=== PATIENT | male | born 1960 | race Caucasian/White ===

== ENCOUNTER 2017-11-11 20:20 | Emergency (ER) | payer OTHER ==
--- NOTE | 2017-11-11 20:42 | ER Document Report ---
ED Medical Screen (RME) - General Chief Complaint: Sore Throat Stated Complaint: THROAT ISSUE Time Seen by Provider: 11/11/17 20:40 Mode of Arrival: Ambulatory Information source: Patient Notes: This is a 57-year-old man with a history of hypertension and significant GERD who presents to the emergency room with a foreign body sensation in his throat. The patient states that it is not uncommon for him to regurgitate pieces of food after he eats. He states that 2 hours prior to arrival, he had pizza (1 slice pepperoni, one slice cheese). He states that at the time he ate the food , it felt like it went down. He does state he has been able to drink fluids without any obstruction. He states that he has had a sensation that food wants to, and has come up right to about his throat level and he states that it feels like it stuck right there. He has had no shortness of breath or difficulty breathing. His primary care doctor is Dr. Mccauley. He has not seen a GI doctor for several years. Allergies: No known drug allergies TRAVEL OUTSIDE OF THE [place] IN LAST 30 DAYS: No - Related Data Allergies/Adverse Reactions: No Known Allergies Allergy (Verified 06/26/13 04:33) Past Medical History - Social History Family history: Reviewed & Not Pertinent - Past Medical History Cardiac Medical History: Reports: Hx Hypercholesterolemia, Hx Hypertension Pulmonary Medical History: Denies: Hx Tuberculosis Endocrine Medical History: Reports: Hx Hyperthyroidism GI Medical History: Reports: Hx Gastroesophageal Reflux Disease Musculoskeltal Medical History: Reports Hx Musculoskeletal Deformity - Scoliosis with chronic back pain Past Surgical History: Reports: Hx Bowel Surgery - esophageal wrap - Immunizations Hx Diphtheria, Pertussis, Tetanus Vaccination: - unknown Doctor's Discharge - Discharge Referrals: FABIEN MCCAULEY MD [Primary Care Provider] - Follow up as needed
--- NOTE | 2017-11-11 21:03 | RADIOLOGY REPORT (SQ) ---
EXAM DESCRIPTION: SOFT TISSUE NECK COMPLETED DATE/TIME: 11/11/2017 8:51 pm REASON FOR STUDY: fb sensation COMPARISON: None. NUMBER OF VIEWS: Two views. TECHNIQUE: AP and lateral radiographic image of the soft tissues of the neck. LIMITATIONS: None. FINDINGS: EPIGLOTTIS: Normal. Contour normal. Aryepiglottic folds normal. PREVERTEBRAL SOFT TISSUES: Normal. No soft tissue swelling. SUBGLOTTIC AREA: Normal. No narrowing. RETROPHARYNGEAL SPACE: Normal. No soft tissue masses. BONES: No significant findings. LUNG APICES: Normal. OTHER: No radiopaque foreign body. No other significant finding. IMPRESSION: NEGATIVE STUDY OF THE SOFT TISSUES OF THE NECK. TECHNICAL DOCUMENTATION: JOB ID: [id number] [place]-[id number] 2010 [employer]- All Rights Reserved Reading location - IP/workstation name: [email or web address]
[2017-11-11 21:06] LABS: ABSOLUTE BASOPHILS # (AUTO) 0.1 10^3/uL (0.0-0.2); ABSOLUTE EOSINOPHILS # (AUTO) 0.4 10^3/uL (0.0-0.6); ABSOLUTE LYMPHOCYTES (AUTO) 2.7 10^3/uL (0.5-4.7); ABSOLUTE MONOCYTES (AUTO) 0.6 10^3/uL (0.1-1.4); ABSOLUTE NEUT (AUTO) 3.9 10^3/uL (1.7-8.2); BASOPHILS % (AUTO) 0.8 % (0-2); EOSINOPHILS % (AUTO) 5.5 % (0-6); HEMATOCRIT 42.4 % (37.9-51.0); HEMOGLOBIN 14.3 g/dL (13.5-17.0); LYMPHOCYTES % (AUTO) 35.2 % (13-45); MEAN CORPUSCULAR HEMOGLOBIN 27.4 pg (27.0-33.4); MEAN CORPUSCULAR HGB CONC 33.7 g/dL (32.0-36.0); MEAN CORPUSCULAR VOLUME 81 fl (80-97); MONOCYTES % (AUTO) 8.3 % (3-13); PLATELET COUNT 195 10^3/uL (150-450); RED BLOOD COUNT 5.21 10^6/uL (4.35-5.55); RED CELL DISTRIBUTION WIDTH 14.5 % (11.5-14.0); SEGMENTED NEUTROPHILS % (AUTO) 50.2 % (42-78); TOTAL CELLS COUNTED % (AUTO) 100 %; WHITE BLOOD COUNT 7.7 10^3/uL (4.0-10.5)
[2017-11-11 22:20] LABS: ALANINE AMINOTRANSFERASE 41 U/L (21-72); ALBUMIN 3.9 g/dL (3.5-5.0); ALKALINE PHOSPHATASE 65 U/L (38-126); ANION GAP 7 (5-19); ASPARTATE AMINO TRANSFERASE 37 U/L (17-59); BILIRUBIN,DIRECT 0.3 mg/dL (0.0-0.4); BILIRUBIN,TOTAL 0.4 mg/dL (0.2-1.3); BLOOD UREA NITROGEN 15 mg/dL (7-20); CALCIUM 9.3 mg/dL (8.4-10.2); CARBON DIOXIDE 29 mmol/L (22-30); CHLORIDE 107 mmol/L (98-107); GLUCOSE 92 mg/dL (75-110); POTASSIUM 3.9 mmol/L (3.6-5.0); SODIUM 142.8 mmol/L (137-145); TOTAL PROTEIN 6.5 g/dL (6.3-8.2)
[2017-11-11] MEDS ORDERED: MAG HYDROX/AL HYDROX/SIMETH SUSP 30 ML UDCUP PO ONE (22:27)
[2017-11-11] MEDS ORDERED: LIDOCAINE 2% VISCOUS SOLN 20 ML UDCUP PO ONE (22:27)
[2017-11-11] MEDS ORDERED: METOCLOPRAMIDE HCL ORAL SOLN 10 MG/10 ML UDCUP PO ONE (22:27)
--- NOTE | 2017-11-11 22:32 | ER Document Report ---
ED General - General Chief Complaint: Sore Throat Stated Complaint: SORE THROAT Time Seen by Provider: 11/11/17 20:40 Mode of Arrival: Ambulatory Notes: Patient is a 57-year-old male that comes to the emergency department for chief complaint of a sensation of something stuck in his throat. He states that he had pizza for dinner, pepperoni and cheese, states that afterwards he began to have the sensation. He reports it is common for him to regurgitate food after he eats it. He states that he has GERD 75% of most days and belching throughout every day. He is on a PPI but unable to remember the name. He has not had an endoscopy in a long time. He denies vomiting, abdominal pain, chest pain, difficulty breathing. He states that he stepped fluids, this went down, then he gulped fluids and this also went down. TRAVEL OUTSIDE OF THE [place] IN LAST 30 DAYS: No - Related Data Allergies/Adverse Reactions: No Known Allergies Allergy (Verified 06/26/13 04:33) Past Medical History - General Information source: Patient - Social History Smoking Status: Never Smoker Frequency of alcohol use: None Drug Abuse: None Lives with: Family Family History: Reviewed & Not Pertinent Patient has suicidal ideation: No Patient has homicidal ideation: No - Past Medical History Cardiac Medical History: Reports: Hx Hypercholesterolemia, Hx Hypertension Pulmonary Medical History: Denies: Hx Tuberculosis Endocrine Medical History: Reports: Hx Hyperthyroidism Renal/ Medical History: Denies: Hx Peritoneal Dialysis GI Medical History: Reports: Hx Gastroesophageal Reflux Disease Musculoskeletal Medical History: Reports Hx Musculoskeletal Deformity - Scoliosis with chronic back pain Past Surgical History: Reports: Hx Bowel Surgery - esophageal wrap - Immunizations Hx Diphtheria, Pertussis, Tetanus Vaccination: - unknown Review of Systems - Review of Systems Constitutional: No symptoms reported EENT: See HPI Cardiovascular: No symptoms reported Respiratory: No symptoms reported Gastrointestinal: See HPI Genitourinary: No symptoms reported Male Genitourinary: No symptoms reported Musculoskeletal: No symptoms reported Skin: No symptoms reported Hematologic/Lymphatic: No symptoms reported Neurological/Psychological: No symptoms reported Physical Exam - Vital signs Vitals: Pulse Resp BP Pulse Ox 63 18 176/89 H 98 11/11/17 21:31 11/11/17 21:31 11/11/17 21:31 11/11/17 21:31 - Notes Notes: GENERAL: Alert, interacts well. No acute distress. HEAD: Normocephalic, atraumatic. EYES: Pupils equal, round, and reactive to light. Extraocular movements intact. ENT: Oral mucosa moist, tongue midline. Unremarkable oral pharyngeal exam. NECK: Full range of motion. Supple. Trachea midline. LUNGS: Clear to auscultation bilaterally, no wheezes, rales, or rhonchi. No respiratory distress. HEART: Regular rate and rhythm. No murmur ABDOMEN: Soft, non-tender. Non-distended. Bowel sounds present in all 4 quadrants. EXTREMITIES: Moves all 4 extremities spontaneously. No edema, normal radial and dorsalis pedis pulses bilaterally. No cyanosis. BACK: no cervical, thoracic, lumbar midline tenderness. No saddle anesthesia, normal distal neurovascular exam. NEUROLOGICAL: Alert and oriented x3. Normal speech. [cranial nerves II through XII grossly intact]. PSYCH: Normal affect, normal mood. SKIN: Warm, dry, normal turgor. No rashes or lesions noted. Course - Re-evaluation Re-evalutation: Patient without obstruction, he can tolerate p.o. without any difficulty. He still has the foreign body sensation intermittently. I suspect he is having esophageal spasm but I am uncertain at this time. He denies chest pain, shortness of breath, abdominal pain. Because of patient's severe GERD symptoms reported he was given GI cocktail, I did review x-ray from triage and this was unremarkable, CBC, chemistry unremarkable, vital signs unremarkable, patient is talkative and well-appearing. After GI cocktail patient's symptoms completely resolved. He is still tolerating p.o. without any difficulty. Patient is very satisfied with this, he states he will follow-up with gastroenterology, he is requesting to leave. Discussed follow-up and return precautions. Patient states understanding and agreement. - Vital Signs Vital signs: Temp Pulse Resp BP Pulse Ox 98.3 F 56 L 18 158/85 H 96 11/12/17 00:12 11/12/17 00:12 11/12/17 00:12 11/12/17 00:12 11/12/17 00:12 - Laboratory Result Diagrams: 11/11/17 20:55 11/11/17 21:47 Laboratory results interpreted by me: 11/11/17 20:55 RDW 14.5 H Discharge - Discharge Clinical Impression: Dyspepsia, Throat discomfort Condition: Stable Disposition: HOME, SELF-CARE Additional Instructions: Your workup here and examination are reassuring, this appears to be most likely esophageal spasm, I recommend that you take the Carafate along with your current medication for the next 5 days, follow-up with the gastroenterology referral for additional evaluation and management. Return if you worsen including vomiting, vomiting blood, black stools, severe pain, difficulty swallowing, or any other concerning symptoms. Prescriptions: Sucralfate [Carafate 1 gm Tablet] 1 gm PO QID #20 tablet Referrals: JU MCCLOUD MD [ACTIVE STAFF] - Follow up as needed
[2017-11-12 00:13] VITALS: BP 158/85
== END 2017-11-12 00:14 | disposition home or self-care (01) ==
LOC: ER 20:20
DX: J02.9 Acute pharyngitis, unspecified (principal); R10.13 Epigastric pain
CPT/HCPCS: 99283; 36415; 85025; 80053; 70360; J3490

== ENCOUNTER 2018-03-12 12:11 | Emergency (ER) | payer OTHER ==
[2018-03-12 12:35] VITALS: BP 153/84
--- NOTE | 2018-03-12 14:41 | RADIOLOGY REPORT (SQ) ---
EXAM DESCRIPTION: SOFT TISSUE NECK COMPLETED DATE/TIME: 03/12/2018 2:28 pm REASON FOR STUDY: muffled voice, eval airway COMPARISON: 11/11/2017. NUMBER OF VIEWS: Two views. TECHNIQUE: AP and lateral radiographic image of the soft tissues of the neck. LIMITATIONS: None. FINDINGS: EPIGLOTTIS: Normal. Contour normal. Aryepiglottic folds normal. PREVERTEBRAL SOFT TISSUES: Normal. No soft tissue swelling. SUBGLOTTIC AREA: Normal. No narrowing. RETROPHARYNGEAL SPACE: Normal. No soft tissue masses. BONES: No significant findings. LUNG APICES: Normal. OTHER: No radiopaque foreign body. No other significant finding. IMPRESSION: NEGATIVE STUDY OF THE SOFT TISSUES OF THE NECK. TECHNICAL DOCUMENTATION: JOB ID: [id number] [employer]- All Rights Reserved Reading location - IP/workstation name: [email or web address]
[2018-03-12] MEDS ORDERED: PREDNISONE 20 MG TABLET PO ONE (14:55)
[2018-03-12] MEDS ORDERED: DOXYCYCLINE HYCLATE 100 MG TABLET PO ONE (14:55)
--- NOTE | 2018-03-12 14:56 | ER Document Report ---
HPI - HPI Time Seen by Provider: 03/12/18 13:48 Pain Level: 1 Notes: Patient is an otherwise healthy 58-year-old male who presents the emergency department with chief complaint of productive cough over the last 2-3 weeks. Patient reports mild fevers at home. Patient reports this morning he woke up with a hoarse voice. Denies any sore throat. Patient reports he is able to swallow without difficulty. Patient does have a hot potato voice on exam. - CONSTITUTIONAL Constitutional: DENIES: Fever, Chills - CARDIOVASCULAR Cardiovascular: REPORTS: Chest pain - REPRODUCTIVE Reproductive: DENIES: : Past Medical History - General Information source: Patient - Social History Smoking Status: Never Smoker Chew tobacco use (# tins/day): No Frequency of alcohol use: None Drug Abuse: None Family History: Reviewed & Not Pertinent Patient has suicidal ideation: No Patient has homicidal ideation: No - Past Medical History Cardiac Medical History: Reports: Hx Hypercholesterolemia, Hx Hypertension Pulmonary Medical History: Denies: Hx Tuberculosis Endocrine Medical History: Reports: Hx Hyperthyroidism Renal/ Medical History: Denies: Hx Peritoneal Dialysis GI Medical History: Reports: Hx Gastroesophageal Reflux Disease Musculoskeletal Medical History: Reports Hx Musculoskeletal Deformity - Scoliosis with chronic back pain Past Surgical History: Reports: Hx Bowel Surgery - esophageal wrap - Immunizations Hx Diphtheria, Pertussis, Tetanus Vaccination: - unknown Vertical Provider Document - CONSTITUTIONAL Notes: PHYSICAL EXAMINATION: GENERAL: Well-appearing, well-nourished and in no acute distress. HEAD: Atraumatic, normocephalic. EYES: Pupils equal round extraocular movements intact, conjunctiva are normal. ENT: Nares patent with clear rhinorrhea. NECK: Normal range of motion and without lymphadenopathy. LUNGS: No respiratory distress, lung sounds clear to auscultation with occasional rhonchi. Musculoskeletal: Normal range of motion NEUROLOGICAL: Normal speech, normal gait. PSYCH: Normal mood, normal affect. SKIN: Warm, Dry, normal turgor, no rashes or lesions noted. - INFECTION CONTROL TRAVEL OUTSIDE OF THE [place] IN LAST 30 DAYS: No Course - Re-evaluation Re-evalutation: Soft tissue neck x-ray was obtained and has no acute findings. Patient's phys ical examination is consistent with bronchitis. Considering patient is 58 years old and has had the symptoms for close to 3 weeks. I do feel that it is reasonable to place this patient on antibiotic at this point. - Vital Signs Vital signs: Temp Pulse Resp BP Pulse Ox 98.3 F 58 L 16 153/84 H 97 03/12/18 12:34 03/12/18 12:34 03/12/18 12:34 03/12/18 12:34 03/12/18 12:34 Discharge - Discharge Clinical Impression: Bronchitis Condition: Stable Disposition: HOME, SELF-CARE Additional Instructions: BRONCHITIS WITH BRONCHOSPASM (WHEEZING): You have bronchitis with bronchospasm (wheezing). Sometimes people develop wheezing with a chest cold. This occurs either because of an underlying tendency toward asthma or because the virus itself irritates the bronchial tubes. This irritation causes cough, shortness of breath, and wheezing. Emergency treatment of bronchospasm may include adrenaline shots or bronchodilator aerosol. You may feel lightheaded and have a rapid pulse for an hour or two. Rest and get plenty of fluids. At home, we'll treat you with a bronchodilator inhaler. Corticosteroids may be required for some patients. Until you recover, avoid chemical fumes, dusts, pollens, and exercising in very cold or dry air. If you smoke, stop now! Most cases of bronchitis get better without antibiotics. We prescribe antibiotics when we believe bacteria are damaging your airways, or if there's high risk the bronchitis will worsen into pneumonia. Increase your fluid intake. A cool mist humidifier may make your lungs more comfortable. An expectorant (co ugh medicine that loosens phlegm) can help. Repeated episodes of bronchitis and bronchospasm may result in lung damage -- for example, chronic bronchitis, recurrent pneumonias, or emphysema. If you develop a fever, increased wheezing, chest pain, or severe shortness of breath, you should contact the doctor immediately. INHALED BRONCHODILATORS: You have received a treatment of and/or prescription for an inhaled bronchodilator -- a medication which stimulates the airways in the lung to dilate. This improves the flow of air in asthma, bronchitis, and emphysema. These medicines have some similarity to adrenaline, and can cause similar side effects: shakiness, racing heart, and a sense of nervousness. These side effects decrease with time. Contact your doctor if these side effects are severe. Do not over-use the medicine. Too-frequent use of the inhaler may make it ineffective. Call your doctor if the inhaler is not controlling your symptoms at the prescribed doses. STEROID MEDICATION: You have been given an injection of or oral medicine of the cortisone/steroid class. This medication is used to control inflammation or allergy. Ronald t is usually only given for a short period of time, until the acute process subsides. There are usually no side effects from short-term use of cortisone-like medications. Some persons feel an increased sense of well-being and are not sleepy at bedtime. Long-term use of cortisone medications is best avoided, unless required for a severe condition. If your condition does not remit, or relapses after the course of corticosteroid medication, you should consult your physician. ANTIBIOTIC THERAPY: You have been given an antibiotic prescription. It's important that you take all the medication, unless instructed otherwise by your physician. Failure to complete the entire course can result in relapse of your condition. Common side effects of antibiotics include nausea, intestinal cramping, or diarrhea. Women may develop vaginal yeast infections, and babies can get yeast (thrush) in the mouth following the use of antibiotics. Contact your physician if you develop significant side effects from this medication. Allergy to this antibiotic can result in hives, wheezing, faintness, or itching. If symptoms of allergy occur, stop the medication and call your doctor. DOXYCYCLINE: Doxycycline (Vibramycin, Doryx) is an antibiotic of the tetracycline family. This type of drug is useful for infections of the respiratory tract and genital tract, and is sometimes used for intestinal infections. Unlike most tetracyclines, doxycycline can be taken with food. It is longer acting, and (usually) less prone to side effects than regular tetracycline. Tetracycline antibiotics can stain immature teeth and SHOULD NOT BE TAKEN BY CHILDREN, NURSING MOTHERS, OR WOMEN. Tetracyclines can make you more prone to sunburn. Abdominal cramping, nausea, and diarrhea are occasional side effects. Women may experience vaginal yeast infections. Call the doctor at once if you develop hives, itching, shortness of breath, or lightheadedness. USE OF ACETAMINOPHEN (Tylenol): Acetaminophen may be taken for pain relief or fever control. It's much safer than aspirin, offering a wider range of "safe" dosages. It is safe during . Some brand names are Tylenol, Panadol, Datril, Anacin 3, Tempra, and Liquiprin. Acetaminophen can be repeated every four hours. The following are maximum recommended dosages: >89 pounds or adults 650 mg to 900 mg Acetaminophen can be repeated every four hours. Maximum dose not to exceed 4000 mg a day. SMOKING: If you smoke, you should stop smoking. The tar and chemicals in cigarette smoke are harmful. Smoking has been shown to cause: emphysema chronic bronchitis lung cancer mouth and throat cancer stomach and pancreas cancer premature aging defects In addition, smoking increases ear and lung infections in children of smokers. FOLLOW-UP CARE: If you have been referred to a physician for follow-up care, call the physicians office for an appointment as you were instructed or within the next two days. If you experience worsening or a significant change in your symptoms, notify the physician immediately or return to the Emergency Department at any time for re-evaluation. Prescriptions: Doxycycline Hyclate 100 mg PO BID #14 capsule Fluticasone Propionate [Flonase Nasal [place] 50 Mcg/[place] 16 gm] 2 sprays NASL Q12 #1 inhaler Prednisone [Deltasone 20 mg Tablet] 3 tab PO DAILY 4 Days #12 tablet Referrals: FABIEN MCCAULEY MD [Primary Care Provider] - Follow up as needed
[2018-03-12] MEDS ORDERED: ALBUTEROL SULFATE HFA (90 MCG/PUFF) 200 PUFF/8.5 GM MDI IH ONE (15:03)
== END 2018-03-12 15:16 | disposition home or self-care (01) ==
LOC: ER 12:11
DX: J40 Bronchitis, not specified as acute or chronic (principal); R05 Cough; R50.9 Fever, unspecified; R49.0 Dysphonia; R07.9 Chest pain, unspecified; I10 Essential (primary) hypertension
CPT/HCPCS: 99283; 70360; J7512; J3490

== ENCOUNTER 2018-11-17 13:15 | Observation (INO) | payer OTHER ==
[2018-11-17 14:19] LABS: ABSOLUTE BASOPHILS # (AUTO) 0.1 10^3/uL (0.0-0.2); ABSOLUTE EOSINOPHILS # (AUTO) 0.2 10^3/uL (0.0-0.6); ABSOLUTE LYMPHOCYTES (AUTO) 1.9 10^3/uL (0.5-4.7); ABSOLUTE MONOCYTES (AUTO) 0.5 10^3/uL (0.1-1.4); ABSOLUTE NEUT (AUTO) 3.1 10^3/uL (1.7-8.2); BASOPHILS % (AUTO) 1.1 % (0-2); EOSINOPHILS % (AUTO) 3.5 % (0-6); LYMPHOCYTES % (AUTO) 33.7 % (13-45); MEAN CORPUSCULAR HGB CONC 33.3 g/dL (32.0-36.0); MEAN CORPUSCULAR VOLUME 81 fl (80-97); MONOCYTES % (AUTO) 8.4 % (3-13); PLATELET COUNT 166 10^3/uL (150-450); RED BLOOD COUNT 5.18 10^6/uL (4.35-5.55); RED CELL DISTRIBUTION WIDTH 14.6 % (11.5-14.0); SEGMENTED NEUTROPHILS % (AUTO) 53.3 % (42-78); TOTAL CELLS COUNTED % (AUTO) 100 %; WHITE BLOOD COUNT 5.8 10^3/uL (4.0-10.5)
[2018-11-17 14:45] LABS: ALBUMIN 4.7 g/dL (3.5-5.0); ALKALINE PHOSPHATASE 61 U/L (38-126); ANION GAP 9 (5-19); ASPARTATE AMINO TRANSFERASE 40 U/L (17-59); BILIRUBIN,DIRECT 0.1 mg/dL (0.0-0.4); BLOOD UREA NITROGEN 17 mg/dL (7-20); CALCIUM 9.6 mg/dL (8.4-10.2); CARBON DIOXIDE 26 mmol/L (22-30); CHLORIDE 104 mmol/L (98-107); CREATINE KINASE 96 U/L (55-170); GLUCOSE 91 mg/dL (75-110); POTASSIUM 4.3 mmol/L (3.6-5.0); TOTAL PROTEIN 7.4 g/dL (6.3-8.2)
[2018-11-17 14:57] LABS: CREATINE KINASE MB 0.62 ng/mL (<4.55); TROPONIN I < 0.012 ng/mL
[2018-11-17 16:25] LABS: INTERNATIONAL RATION (INR) 0.98
--- NOTE | 2018-11-17 16:34 | RADIOLOGY REPORT (SQ) ---
EXAM DESCRIPTION: CHEST SINGLE VIEW COMPLETED DATE/TIME: 11/17/2018 4:22 pm REASON FOR STUDY: chest pain COMPARISON: KUB same date Two-view chest 06/28/2013 EXAM PARAMETERS: NUMBER OF VIEWS: One view. TECHNIQUE: Single frontal radiographic view of the chest acquired. RADIATION DOSE: NA LIMITATIONS: None. FINDINGS: LUNGS AND PLEURA: No opacities, masses or pneumothorax. No pleural effusion. MEDIASTINUM AND HILAR STRUCTURES: No masses. Contour normal. HEART AND VASCULAR STRUCTURES: Mild cardiomegaly BONES: No acute findings. HARDWARE: None in the chest. OTHER: No other significant finding. IMPRESSION: Mild cardiomegaly. No acute infiltrates TECHNICAL DOCUMENTATION: JOB ID: [id number] [employer]- All Rights Reserved Reading location - IP/workstation name: [email or web address]
--- NOTE | 2018-11-17 16:35 | RADIOLOGY REPORT (SQ) ---
EXAM DESCRIPTION: KUB/ABDOMEN (SINGLE VIEW) COMPLETED DATE/TIME: 11/17/2018 4:22 pm REASON FOR STUDY: abdominal pain COMPARISON: CT abdomen and pelvis 06/26/2013 NUMBER OF VIEWS: One view. TECHNIQUE: Supine radiographic image of the abdomen acquired. LIMITATIONS: None. FINDINGS: BOWEL GAS PATTERN: Abnormal but nonspecific bowel gas pattern, with air in borderline dis tended small bowel loops, gas and stool in the colon. Stomach decompressed. CALCIFICATIONS: No suspicious calcifications. SOFT TISSUES: No gross mass or suggestion of organomegaly. HARDWARE: None in the abdomen. BONES: No acute fracture. No worrisome bone lesions. OTHER: No other significant finding. IMPRESSION: Nonspecific bowel gas pattern with air-filled borderline dilated small bowel loops. TECHNICAL DOCUMENTATION: JOB ID: [id number] [employer]- All Rights Reserved Reading location - IP/workstation name: [email or web address]
[2018-11-17] MEDS ORDERED: BISACODYL 10 MG SUPP.RECT PR ONE (17:45)
[2018-11-17] MEDS ORDERED: MAGNESIUM CITRATE 296 ML BOTTLE PO ONE (17:45)
[2018-11-17] MEDS ORDERED: (PENDING PHARMACY ID) (Venlafaxine Hcl [Effexor] 37.5 MG) PO SCH (18:00)
--- NOTE | 2018-11-17 18:10 | PDOC H&P ---
History of Present Illness Admission Date/PCP: 11/17/18 13:15 FABIEN GRARICK Patient complains of: Chest pain History of Present Illness: STACY TRUONG is a 58 year old male patient known to my practice with history of hyperthyroidism on medication management who presented to the office earlier today with complain of chest tightness and pain. Patient reported that his symptoms have been ongoing for about 12-15 hours, localized pain to substernal region and radiating in both direction. His pain is worsen with movement and coughing. Patient reported associated abdominal pain with tarry stool, dyspepsia, reflux and constipation. He reported coughing with episodes of need to sit up in bed due to difficulty with breathing. Patient reported worsening tremor and back pain. His evaluation in the office was significant for anxiousness, demonstrable tremor in hands and fingers, and 12 lead ECG that revealed sinus bradycardia with anteroseptal ST-T wave changes that may be due to myocardial infarction. In view of his protean symptoms presentation, morbidities and ECG findings he was advised hospitalization on observation status for further evaluation and management. Past Medical History Cardiac Medical History: Reports: Hyperlipidema, Hypertension Pulmonary Medical History: Denies: Tuberculosis Endocrine Medical History: Reports: Hyperthyroidism GI Medical History: Reports: Gastroesophageal Reflux Disease Hematology: Reports: Anemia Social History Smoking Status: Never Smoker Frequency of Alcohol Use: None Hx Recreational Drug Use: No Drugs: None Hx Prescription Drug Abuse: No - Advance Directive Resuscitation Status: Full Code Family History Family History: Reviewed & Not Pertinent Parental Family History Reviewed: Yes Children Family History Reviewed: Yes Sibling(s) Family History Reviewed.: Yes Medication/Allergy Home Medications: Metoprolol Tartrate [Lopressor 25 mg Tablet] 25 mg PO Q12 11/17/18 Pantoprazole Sodium [Protonix [address] Tablet] 40 mg PO Q6AM 11/17/18 Pregabalin [Lyrica 75 mg Capsule] 75 mg PO Q8 11/17/18 Propylthiouracil [Propylthiouracil 50 Mg Tablet] 100 mg PO BID 11/17/18 Simvastatin [Zocor 20 mg Tablet] 20 mg PO DAILY 11/17/18 Venlafaxine HCl [Effexor] 37.5 mg PO BID 11/17/18 Allergies/Adverse Reactions: No Known Allergies Allergy (Verified 06/26/13 04:33) Review of Systems Constitutional: ABSENT: chills, fever(s), headache(s), weight gain, weight loss Eyes: ABSENT: visual disturbances Ears: ABSENT: hearing changes Nose, Mouth, and Throat: ABSENT: as per HPI, headache(s), mouth pain, sore throat, vertigo, other Cardiovascular: PRESENT: chest pain, dyspnea on exertion. ABSENT: as per HPI, edema, orthropnea, palpitations, other Respiratory: PRESENT: cough, dyspnea Gastrointestinal: PRESENT: abdominal pain - with dyspepsia and reflux, constipation, hematochezia - more of reported tarry stool Genitourinary: ABSENT: dysuria, hematuria Musculoskeletal: PRESENT: back pain Integumentary: ABSENT: rash, wounds Neurological: PRESENT: tremor(s) Psychiatric: PRESENT: other - sleep disturbance Allergic/Immunologic: PRESENT: seasonal rhinorrhea - cold and congestion was reported by spouse at bedside., other - frequent sneezing Physical Exam Vital Signs: Temp Pulse Resp BP Pulse Ox 97.4 F 50 L 16 156/77 H 98 11/17/18 16:41 11/17/18 16:41 11/17/18 16:41 11/17/18 16:41 11/17/18 16:41 Intake & Output 11/16/18 11/17/18 11/18/18 06:59 06:59 06:59 Weight 111.5 kg General appearance: PRESENT: mild distress - from chest and abdominal discomfort in the office, obese Head exam: PRESENT: atraumatic, normocephalic Eye exam: PRESENT: conjunctiva pink, EOMI, PERRLA. ABSENT: scleral icterus Ear exam: PRESENT: normal external ear exam Mouth exam: PRESENT: moist Neck exam: PRESENT: full ROM. ABSENT: carotid bruit, JVD, lymphadenopathy, thyromegaly Respiratory exam: PRESENT: clear to auscultation gamaliel Cardiovascular exam: PRESENT: bradycardia, +S1, +S2. ABSENT: diastolic murmur, rubs, systolic murmur Vascular exam: PRESENT: normal capillary refill. ABSENT: pallor GI/Abdominal exam: PRESENT: distended, firm, normal bowel sounds. ABSENT: guarding, organolmegaly, rebound, tenderness Rectal exam: PRESENT: deferred Extremities exam: ABSENT: pedal edema Musculoskeletal exam: PRESENT: normal inspection Neurological exam: PRESENT: alert, awake, oriented to person, oriented to place, oriented to time, oriented to situation, CN II-XII grossly intact. ABSENT: motor sensory deficit Psychiatric exam: PRESENT: anxious Skin exam: PRESENT: dry, warm Results Laboratory Results: 11/17/18 14:00 11/17/18 14:00 11/17/18 11/17/18 14:00 14:00 WBC 5.8 RBC 5.18 Hgb 14.0 Hct 42.0 MCV 81 MCH 27.0 MCHC 33.3 RDW 14.6 H Plt Count 166 Seg Neutrophils % 53.3 Sodium 139.2 Potassium 4.3 Chloride 104 Carbon Dioxide 26 Anion Gap 9 BUN 17 Creatinine 0.74 Est GFR ( Amer) > 60 Glucose 91 Calcium 9.6 Total Bilirubin 1.0 AST 40 Alkaline Phosphatase 61 Total Protein 7.4 Albumin 4.7 11/17/18 11/17/18 14:00 14:00 Creatine Kinase 96 CK-MB (CK-2) 0.62 Troponin I < 0.012 Impressions: Chest X-Ray 11/17/18 00:00 IMPRESSION: Mild cardiomegaly. No acute infiltrates KUB X-Ray 11/17/18 14:30 IMPRESSION: Nonspecific bowel gas pattern with air-filled borderline dilated small bowel loops. Assessment & Plan - Diagnosis (1) Chest pain with high risk of acute coronary syndrome Is this a current diagnosis for this admission?: Yes Plan: See admitting attending physician orders for details about care plan. (2) Abdominal pain Qualifiers: Abdominal location: unspecified location Qualified Code(s): R10.9 - Unspecified abdominal pain Is this a current diagnosis for this admission?: Yes Plan: See admitting attending physician orders for details about care plan. (3) Constipation Qualifiers: Constipation type: unspecified constipation type Qualified Code(s): K59.00 - Constipation, unspecified Is this a current diagnosis for this admission?: Yes Plan: See admitting attending physician orders for details about care plan. (4) Hyperthyroidism Is this a current diagnosis for this admission?: Yes Plan: See admitting attending physician orders for details about care plan. (5) Essential hypertension Is this a current diagnosis for this admission?: Yes Plan: See admitting attending physician orders for details about care plan. (6) Hyperlipidemia Qualifiers: Hyperlipidemia type: unspecified Qualified Code(s): E78.5 - Hyperlipidemia, unspecified Is this a current diagnosis for this admission?: Yes Plan: See admitting attending physician orders for details about care plan. (7) GERD (gastroesophageal reflux disease) Qualifiers: Esophagitis presence: esophagitis presence not specified Qualified Code(s): K21.9 - Gastro-esophageal reflux disease without esophagitis Is this a current diagnosis for this admission?: Yes Plan: See admitting attending physician orders for details about care plan. (8) BPH loc w urin obs/LUTS Is this a current diagnosis for this admission?: Yes Plan: See admitting attending physician orders for details about care plan. (9) Lumbar degenerative disc disease Is this a current diagnosis for this admission?: Yes Plan: See admitting attending physician orders for details about care plan. (10) Chronic pain syndrome Is this a current diagnosis for this admission?: Yes Plan: See admitting attending physician orders for details about care plan. (11) CAM[place] (obstructive sleep apnea) Is this a current diagnosis for this admission?: Yes Plan: See admitting attending physician orders for details about care plan. - Time Time Spent: 50 to 70 Minutes Medications reviewed and adjusted accordingly: Yes Anticipated discharge: Home Within: Other - Inpatient Certification Based on my medical assessment, after consideration of the patient's comorbidities, presenting symptoms, or acuity I expect that the services needed warrant INPATIENT care.: No I certify that my determination is in accordance with my understanding of Medicare's requirements for reasonable and necessary INPATIENT services [42 CFR 412.3e].: No Medical Necessity: Significant Comorbidiites Make Outpatient Treatment Too Risky, Need Close Monitoring Due to Risk of Patient Decompensation, Need For Continuous Telemetry Monitoring, Risk of Complication if Not Cared For in H ospital, Risk of Diagnosis Which Will Require Inpatient Eval/Care/Monitoring Post Hospital Care: D/C C[employer] Documentation - Plan Summary Plan Summary: See admitting attending physician orders for details about care plan.
[2018-11-17 19:17] LABS: FREE T3 3.52 pg/mL (2.77-5.27); FREE T4 (FREE THYROXINE) 0.89 ng/dL (0.78-2.19)
[2018-11-17 19:31] LABS: THYROID STIMULATING HORMONE 0.9 uIU/mL (0.47-4.68)
[2018-11-17] MEDS: PROPYLTHIOURACIL 50 MG TABLET PO SCH (21:41)
[2018-11-17] MEDS: VENLAFAXINE HCL 75 MG TABLET PO SCH (21:41)
[2018-11-17] MEDS: PREGABALIN 75 MG CAPSULE PO SCH (21:41)
[2018-11-17] MEDS: SIMVASTATIN 10 MG TABLET PO SCH (21:41)
[2018-11-18] MEDS: PREGABALIN 75 MG CAPSULE PO SCH ×3 (05:07→21:28)
--- NOTE | 2018-11-18 08:59 | EKG REPORT ---
SEVERITY:- BORDERLINE ECG - SINUS BRADYCARDIA BORDERLINE LEFT AXIS DEVIATION BORDERLINE T ABNORMALITIES, ANT-LAT LEADS : Confirmed by: Luz Mcguire 18-Nov-2018 08:58:33
[2018-11-18] MEDS: PANTOPRAZOLE SODIUM 40 MG TABLET.DR PO SCH (10:11)
[2018-11-18] MEDS: ASPIRIN 81 MG TABLET, ENT COATED PO SCH (10:12)
[2018-11-18] MEDS: PROPYLTHIOURACIL 50 MG TABLET PO SCH ×2 (10:12→21:28)
[2018-11-18] MEDS: VENLAFAXINE HCL 75 MG TABLET PO SCH ×2 (10:12→21:28)
[2018-11-18] MEDS: ENOXAPARIN SODIUM INJ 40 MG/0.4 ML DISP.SYRIN SUBCUT SCH (10:13)
[2018-11-18 14:48] LABS: CREATINE KINASE MB 0.33 ng/mL (<4.55)
[2018-11-18 14:51] LABS: TROPONIN I < 0.012 ng/mL
--- NOTE | 2018-11-18 16:24 | PDOC PROGRESS REPORT ---
Subjective Progress Note for:: 11/18/18 Subjective:: Patient was admitted yesterday, it seems that the primary symptom was severe constipation associated with abdominal pain that seems to involve his chest. He does not have chest pain that suggest ischemia, he was prescribed anti- constipation medication yesterday with good results, he has a history of hypothyroidism on PTU Reason For Visit: CHEST PAIN, ABDOMINAL PAIN, CONSTIPATION Physical Exam Vital Signs: Temp Pulse Resp BP Pulse Ox 97.6 F 61 18 152/76 H 97 11/18/18 15:39 11/18/18 15:39 11/18/18 15:39 11/18/18 15:39 11/18/18 15:39 Intake & Output 11/17/18 11/18/18 11/19/18 06:59 06:59 06:59 Weight 111.2 kg General appearance: PRESENT: no acute distress Eye exam: PRESENT: PERRLA Respiratory exam: PRESENT: clear to auscultation gamaliel Cardiovascular exam: PRESENT: +S1, +S2 GI/Abdominal exam: PRESENT: soft Neurological exam: PRESENT: alert Results Laboratory Results: 11/17/18 14:00 11/17/18 14:00 11/17/18 14:00 TSH 0.90 Free T4 0.89 Free T3 pg/mL 3.52 11/17/18 11/17/18 11/18/18 14:00 14:00 14:01 Creatine Kinase 96 72 CK-MB (CK-2) 0.62 Troponin I < 0.012 11/18/18 14:01 Creatine Kinase CK-MB (CK-2) 0.33 Troponin I < 0.012 Impressions: Chest X-Ray 11/17/18 00:00 IMPRESSION: Mild cardiomegaly. No acute infiltrates KUB X-Ray 11/17/18 14:30 IMPRESSION: Nonspecific bowel gas pattern with air-filled borderline dilated small bowel loops. Assessment & Plan - Diagnosis (1) Constipation Qualifiers: Constipation type: unspecified constipation type Qualified Code(s): K59.00 - Constipation, unspecified Is this a current diagnosis for this admission?: Yes Plan: Continue treatment (2) Abdominal pain Qualifiers: Abdominal location: unspecified location Qualified Code(s): R10.9 - Unspecified abdominal pain Is this a current diagnosis for this admission?: Yes
[2018-11-18] MEDS ORDERED: ACETAMINOPHEN 325 MG TABLET PO PRN (19:27)
[2018-11-18 20:22] LABS: CREATINE KINASE MB 0.46 ng/mL (<4.55)
[2018-11-18 20:31] LABS: TROPONIN I < 0.012 ng/mL
[2018-11-18] MEDS: SIMVASTATIN 10 MG TABLET PO SCH (21:28)
[2018-11-19 02:12] LABS: CREATINE KINASE MB 0.32 ng/mL (<4.55)
[2018-11-19 02:13] LABS: TROPONIN I < 0.012 ng/mL
[2018-11-19] MEDS: PREGABALIN 75 MG CAPSULE PO SCH (06:09)
[2018-11-19] MEDS: ENOXAPARIN SODIUM INJ 40 MG/0.4 ML DISP.SYRIN SUBCUT SCH (09:20)
[2018-11-19] MEDS: PANTOPRAZOLE SODIUM 40 MG TABLET.DR PO SCH (09:46)
[2018-11-19] MEDS: ASPIRIN 81 MG TABLET, ENT COATED PO SCH (09:46)
[2018-11-19] MEDS: PROPYLTHIOURACIL 50 MG TABLET PO SCH (09:46)
[2018-11-19] MEDS: VENLAFAXINE HCL 75 MG TABLET PO SCH (09:46)
[2018-11-19 12:10] VITALS: BP 142/66
--- NOTE | 2018-11-19 13:21 | PDOC DISCHARGE SUMMARY ---
Impression - Admit/DC Date/PCP Admission Date/Primary Care Provider: 11/17/18 13:15 FABIEN MCCAULEY Discharge Date: 11/19/18 - Discharge Diagnosis (1) Abdominal pain Is this a current diagnosis for this admission?: Yes (2) Chest pain Is this a current diagnosis for this admission?: Yes (3) Constipation Is this a current diagnosis for this admission?: Yes (4) Irritable bowel syndrome with constipation Is this a current diagnosis for this admission?: Yes - Additional Information Resuscitation Status: Full Code Discharge Diet: Cardiac Discharge Activity: Activity As Tolerated Referrals: FABIEN MCCAULEY MD [Primary Care Provider] - Prescriptions: Linaclotide [Linzess 145 Mcg Capsule] 145 mcg PO DAILY #30 capsule Home Medications: Metoprolol Tartrate [Lopressor 25 mg Tablet] 25 mg PO Q12 11/17/18 Pantoprazole Sodium [Protonix [address] Tablet] 40 mg PO Q6AM 11/17/18 Pregabalin [Lyrica 75 mg Capsule] 75 mg PO Q8 11/17/18 Propylthiouracil [Propylthiouracil 50 mg Tablet] 100 mg PO BID 11/17/18 Simvastatin [Zocor 20 mg Tablet] 20 mg PO DAILY 11/17/18 Venlafaxine HCl [Effexor] 37.5 mg PO BID 11/17/18 Linaclotide [Linzess 145 Mcg Capsule] 145 mcg PO DAILY #30 capsule 11/19/18 History of Present Illiness History of Present Illness: STACY TRUONG is a 58 year old male,Patient was admitted for evaluation of, chest pain, abdominal pain, constipation Hospital Course Hospital Course: Patient with a history of hyperthyroidism, on treatment with PTU, he was admitted for evaluation of abdominal pain with chest pain and constipation. He stated that he is chronically constipated, he does not have a BM on a regular basis, he seems that he was so constipated he had a chest pain, because of the chest pain Dr. Mccauley patient primary care physician admitted him to the hospital for observation. He had 3 sets of cardiac enzymes drawn, negative for myocardial infarction. The constipation was treated successfully with combination of Dulcolax, MiraLAX with very good results. Patient felt much better, the abdominal pain resolved, chest pain resolved on direct questioning, it seems that this patient may have irritable bowel syndrome with constipation predominant. I saw him today on rounds he is stable enough for discharge home, he was discharged home on Linzess, he will follow with Dr. Mccauley outpatient for further evaluation. Physical Exam Vital Signs: Temp Pulse Resp BP Pulse Ox 97.8 F 53 L 17 142/66 H 99 11/19/18 12:06 11/19/18 12:06 11/19/18 12:06 11/19/18 12:06 11/19/18 12:06 Intake & Output 11/18/18 11/19/18 11/20/18 06:59 06:59 06:59 Intake Total 1800 Balance 1800 Weight 111.2 kg 113.5 kg General appearance: PRESENT: no acute distress Eye exam: PRESENT: PERRLA Respiratory exam: PRESENT: clear to auscultation gamaliel Cardiovascular exam: PRESENT: +S1, +S2 GI/Abdominal exam: PRESENT: soft Neurological exam: PRESENT: alert, CN II-XII grossly intact Results Laboratory Results: WBC 5.8 10^3/uL (4.0-10.5) 11/17/18 14:00 RBC 5.18 10^6/uL (4.35-5.55) 11/17/18 14:00 Hgb 14.0 g/dL (13.5-17.0) 11/17/18 14:00 Hct 42.0 % (37.9-51.0) 11/17/18 14:00 MCV 81 fl (80-97) 11/17/18 14:00 MCH 27.0 pg (27.0-33.4) 11/17/18 14:00 MCHC 33.3 g/dL (32.0-36.0) 11/17/18 14:00 RDW 14.6 % (11.5-14.0) H 11/17/18 14:00 Plt Count 166 10^3/uL (150-450) 11/17/18 14:00 Lymph % (Auto) 33.7 % (13-45) 11/17/18 14:00 [place] % (Auto) 8.4 % (3-13) 11/17/18 14:00 Eos % (Auto) 3.5 % (0-6) 11/17/18 14:00 Baso % (Auto) 1.1 % (0-2) 11/17/18 14:00 Absolute Neuts (auto) 3.1 10^3/uL (1.7-8.2) 11/17/18 14:00 Absolute Lymphs (auto) 1.9 10^3/uL (0.5-4.7) 11/17/18 14:00 Absolute Monos (auto) 0.5 10^3/uL (0.1-1.4) 11/17/18 14:00 Absolute Eos (auto) 0.2 10^3/uL (0.0-0.6) 11/17/18 14:00 Absolute Basos (auto) 0.1 10^3/uL (0.0-0.2) 11/17/18 14:00 Seg Neutrophils % 53.3 % (42-78) 11/17/18 14:00 PT 13.0 SEC (11.4-15.4) 11/17/18 14:00 INR 0.98 11/17/18 14:00 APTT 30.0 SEC (23.5-35.8) 11/17/18 14:00 Sodium 139.2 mmol/L (137-145) 11/17/18 14:00 Potassium 4.3 mmol/L (3.6-5.0) 11/17/18 14:00 Chloride 104 mmol/L (98-107) 11/17/18 14:00 Carbon Dioxide 26 mmol/L (22-30) 11/17/18 14:00 Anion Gap 9 (5-19) 11/17/18 14:00 BUN 17 mg/dL (7-20) 11/17/18 14:00 Creatinine 0.74 mg/dL (0.52-1.25) 11/17/18 14:00 Est GFR ( Amer) > 60 (>60) 11/17/18 14:00 Est GFR (MDRD) Non-Af > 60 (>60) 11/17/18 14:00 Glucose 91 mg/dL (75-110) 11/17/18 14:00 Calcium 9.6 mg/dL (8.4-10.2) 11/17/18 14:00 Total Bilirubin 1.0 mg/dL (0.2-1.3) 11/17/18 14:00 Direct Bilirubin 0.1 mg/dL (0.0-0.4) 11/17/18 14:00 Neonat Total Bilirubin Not Reportable 11/17/18 14:00 Neonat Direct Bilirubin Not Reportable 11/17/18 14:00 Neonat Indirect Bili Not Reportable 11/17/18 14:00 AST 40 U/L (17-59) 11/17/18 14:00 ALT 45 U/L (<50) 11/17/18 14:00 Alkaline Phosphatase 61 U/L (38-126) 11/17/18 14:00 Creatine Kinase 65 U/L (55-170) 11/19/18 01:20 CK-MB (CK-2) 0.32 ng/mL (<4.55) 11/19/18 01:20 Troponin I < 0.012 ng/mL 11/19/18 01:20 Total Protein 7.4 g/dL (6.3-8.2) 11/17/18 14:00 Albumin 4.7 g/dL (3.5-5.0) 11/17/18 14:00 TSH 0.90 uIU/mL (0.47-4.68) 11/17/18 14:00 Free T4 0.89 ng/dL (0.78-2.19) 11/17/18 14:00 Free T3 pg/mL 3.52 pg/mL (2.77-5.27) 11/17/18 14:00 11/17/18 11/18/18 11/18/18 14:00 14:01 19:45 CK-MB (CK-2) 0.62 0.33 0.46 Troponin I < 0.012 < 0.012 < 0.012 11/19/18 01:20 CK-MB (CK-2) 0.32 Troponin I < 0.012 Impressions: Chest X-Ray 11/17/18 00:00 IMPRESSION: Mild cardiomegaly. No acute infiltrates KUB X-Ray 11/17/18 14:30 IMPRESSION: Nonspecific bowel gas pattern with air-filled borderline dilated small bowel loops. Stroke Is this a Stroke Patient?: No Stroke Pt being discharged on Anti-thrombolytic therapy?: No Reason(s) for not prescribing Anti-thrombolytic therapy:: Not indicated Stroke Pt being discharged on Anti-coagulation therapy?: No Reason(s) for not prescribing Anti-coagulation therapy:: Not indicated Stroke Pt being discharged on Statins?: No Reason(s) for not prescribing Statins therapy:: Not indicated Acute Heart Failure - Is this a Heart Failure Patient?: No Follow-up Appointment scheduled within 7 days?: Yes
== END 2018-11-19 12:26 | disposition home or self-care (01) ==
LOC: 5 13:15
PROVIDERS: ADMIT Internal Medicine Geriatric Medicine; ATTEND Internal Medicine Geriatric Medicine
DX: R07.89 Other chest pain (principal); R10.9 Unspecified abdominal pain; K58.1 Irritable bowel syndrome with constipation; I10 Essential (primary) hypertension; F41.9 Anxiety disorder, unspecified; R25.1 Tremor, unspecified; K21.9 Gastro-esophageal reflux disease without esophagitis; E78.5 Hyperlipidemia, unspecified; R06.09 Other forms of dyspnea; R05 Cough; K92.1 Melena; G47.9 Sleep disorder, unspecified; R06.7 Sneezing; E66.9 Obesity, unspecified; R00.1 Bradycardia, unspecified; E05.90 Thyrotoxicosis, unspecified without thyrotoxic crisis or storm; N40.1 Benign prostatic hyperplasia with lower urinary tract symptoms; J34.89 Other specified disorders of nose and nasal sinuses; G47.33 Obstructive sleep apnea (adult) (pediatric); G89.4 Chronic pain syndrome; M51.36 Other intervertebral disc degeneration, lumbar region; Z79.899 Other long term (current) drug therapy; Z91.19 Patient's noncompliance with other medical treatment and regimen
CPT/HCPCS: 36415 ×3; 84439; 82553 ×3; 82550 ×3; 84443; 85025; 85610; 85730; 80053; 84484 ×3; 84481; 71045; 74018; 93005; 93010; G0378 ×3; G0379; J3490 ×6